=== PATIENT | male | born 1960 | race Caucasian/White ===

== ENCOUNTER 2017-01-20 16:43 | Observation (INO) | payer BC, OTHER ==
[2017-01-20] MEDS ORDERED: Sodium Chloride 0.9% 10 ML Syringe FLUSH PRN (16:57)
[2017-01-20] MEDS ORDERED: Aspirin 81 MG Tab.Chew PO ONE (16:59)
[2017-01-20] MEDS ORDERED: Nitroglycerin 0.4 MG Tab.SL SL ONE (16:59)
[2017-01-20 17:47] LABS: CHLORIDE,CL 104 mmol/L (98-107); SODIUM,NA 140 mmol/L (136-145)
[2017-01-20] MEDS ORDERED: Nitroglycerin 0.4 MG Tab.SL SL PRN (18:38)
[2017-01-20] MEDS: Nicotine 21 MG/24 Hr Patch TRDERM SCH (19:10)
[2017-01-20] MEDS ORDERED: Enoxaparin 40 MG/0.4 ML Syringe SUBCUT SCH (20:00)
[2017-01-20] MEDS ORDERED: Nitroglycerin 0.4 MG Tab.SL ONE (22:26)
[2017-01-20] MEDS ORDERED: LORazepam 1 MG Tab PO ONE (22:51)
[2017-01-21 06:22] VITALS: BP 121/80
[2017-01-21] MEDS: Nicotine 21 MG/24 Hr Patch TRDERM SCH (07:42)
--- NOTE | 2017-01-21 08:27 | ER ---
Date of Service: 01/20/2017 SUBJECTIVE: Philip presents to the emergency room with complaints of substernal chest pain. The patient states that he has been experiencing this discomfort intermittently since early this morning. The patient states that he has experienced intermittent episodes of chest tightness and discomfort for several years. He did have a negative stress test approximately 5 to 7 years ago. He is a heavy smoker, but states that he has no other risk factors for heart disease such as hypertension or dyslipidemia. The patient states that the discomfort is not made worse with movement or activity. He states that he has not been experiencing any fever or chills. He states that he has been under a significant amount of stress recently. PAST MEDICAL HISTORY: 1. Tobacco abuse disorder. 2. History of hypertension and episodes of diaphoresis, negative stress test approximately 5 to 7 years ago. MEDICATIONS: None. ALLERGIES: NKDA. REVIEW OF SYSTEMS: General: No fever or chills. HEENT: No sore throat, rhinorrhea, or congestion. Respiratory: No shortness breath. Cardiac: Please see history of present illness. No jaw, arm, neck, or back pain. GI: No nausea, vomiting, or diarrhea. No melena, hematochezia, or hematemesis. : Denies any dysuria. Musculoskeletal: No myalgias or arthralgias. Neurologic: No fainting, blackouts, or lightheadedness. PHYSICAL EXAMINATION: General: This is a 56-year-old male patient, in no acute distress. Vital signs: Initially, blood pressure is 141/96, pulse rate is 78, temperature is 36.4, respiratory rate is 14, and O2 saturations 97% on room air. Skin: Warm, pink, and dry. HEENT: Head is normocephalic, atraumatic. Mouth, oral mucosa is moist. Lungs: Clear to auscultation. Heart: Regular rate and rhythm. Normal S1, S2. No S3, S4, murmurs, clicks, or rubs. Abdomen: Soft, nontender. There is no hepatosplenomegaly noted. There are no masses noted. Extremities: Without edema. Neurologic: The patient is alert and oriented. Answers all questions appropriately. His speech is fluent. His gait is within normal limits. DIAGNOSTIC DATA: A 12-lead EKG was obtained showing a Q-wave in the inferior leads. No acute ST or T-wave abnormalities noted. Portable chest x-ray was obtained. No evidence of any acute infiltrate failure pattern or other pathology noted. LABORATORY DATA: WBC is 10.5, hemoglobin is 15.5, and platelets are 238. Coag; PT is 10.1 and INR is 0.9. D-dimer is less than 0.9. Chemistry; sodium is 140, potassium is 4.4, chloride is 104, bicarb is 29, BUN is 19, creatinine is 1.4, GFR is 52, glucose is 93, calcium is 8.8, and corrected calcium is 9.04. Total bilirubin is 0.7, AST is 14, ALT is 27, and alkaline phosphatase is 66. CK is 125 and CK-MB is 1.2. Troponin is 0.00. C-reactive protein is less than 0.2. Albumin is 3.7. EMERGENCY ROOM COURSE: IV access was established. He was given 324 mg of aspirin p.o. He was given 1 nitroglycerin, which did little to improve his discomfort. At time of admission, he was still experiencing discomfort approximately 1 or 2 on 1 to 10 scale. He remained stable my care in the emergency room. ASSESSMENT: Unstable angina. PLAN: The patient will be admitted to our facility. We will recheck his troponin in 4 hours and in the morning. We will perform serial EKGs as well as needed. We will schedule him for stress test either tomorrow or in the near future. The patient is a code level 1. The patient will be admitted to observation under my service. MWK: 01/20/2017 20:25:51 MODL: 01/20/2017 23:46:26 /[id number]
--- NOTE | 2017-01-21 11:11 | DISCH ---
ADMITTING DIAGNOSIS: Chest pain of unknown etiology. DISCHARGE DIAGNOSIS: Chest pain of unknown etiology. HOSPITAL COURSE: The patient was admitted yesterday afternoon with chest pain that developed while working in the attic of a house. The patient states that he is very active in his job and states that he does not feel as though he was exerting himself. He states that he did not experience any diaphoresis or palpitations during this event. He characterized the discomfort as substernal in nature without radiation. He states that discomfort does occasionally extend across his chest, however. 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 He also does have a history of previous chest pain in the past, and he states that he did have a negative stress test approximately 5 to 7 years ago. His EKG yesterday did show Q-wave in the inferior leads. He did have several EKGs in the emergency room and this morning, and there was no acute ST or T-wave changes, and the only abnormality was the Q-wave in the inferior leads. Serial troponins were negative. PHYSICAL EXAMINATION: Vital Signs: Blood pressure is 121/80, pulse rate is 67, temperature is 37, respiratory rate is 20, O2 saturations 94% on room air. Skin: Warm, pink, and dry. HEENT: Head is normocephalic and atraumatic. Mouth, oral mucosa is moist. Lungs: Clear to auscultation. Heart: Regular rate and rhythm. Abdomen: Soft and nontender. There is no hepatosplenomegaly or masses noted. Extremities: Without edema. Neurologic: He is alert and oriented, answers all questions appropriately. His speech is fluent. His gait is within normal limits. He is walking in the halls and states he is not experiencing any increased discomfort. HOSPITAL COURSE: The patient's pain level peaked at approximately 1.5 to 2 last night. The patient was given a nitroglycerin with minimal improvement in his discomfort. He also was given 1 nitroglycerin yesterday in the emergency room when he was experiencing this discomfort, which also did not help with the discomfort. He was given an Ativan yesterday as well, as he had been increasing significant amount of stress, and he feels that this did not help with the discomfort either. DISPOSITION: The patient will be discharged. DISCHARGE PLAN: I spoke with Dr. Alston, the director teen post on-call at [facility] in [place]. He felt that the patient could be treated as an outpatient, as he is currently pain free. We are setting him up for a Cardiolite stress test later this afternoon. The patient will be kept n.p.o. and free of caffeine until that time. His appointment is for 2 o'clock this afternoon at the [facility]. I did discuss findings with the patient. He is to return to the emergency room if he develops any recurrence of his chest pain, shortness of breath, palpitations, or lightheadedness. MWK: 01/21/2017 09:35:25 MODL: 01/21/2017 10:34:44 /[id number]
--- NOTE | 2017-02-02 08:01 | ER ---
Date of Service: 01/20/2017 ADDENDUM: This emergency room note may be used as the patient's admission H and P. MWK: 02/01/2017 16:37:12 MODL: 02/01/2017 23:53:17 /[id number]
== END 2017-01-21 09:45 | disposition home or self-care (01) ==
LOC: VM.ED 16:43 → VM.MS 18:15
PROVIDERS: ADMIT Physician Assistant; ATTEND Physician Assistant
DX: I20.0 Unstable angina (principal); I10 Essential (primary) hypertension; R61 Generalized hyperhidrosis; Z72.0 Tobacco use
CPT/HCPCS: 36415; 71010; 80053; 82550; 82553; 84484; 85025; 85027; 85379; 85610; 86140; 93005; 99285; A9270; J1650; 96372; G0378

== ENCOUNTER 2020-03-18 05:45 | Emergency (ER) | payer OTHER ==
[2020-03-18] MEDS ORDERED: Aspirin 81 MG Tab.Chew PO ONE (06:04)
[2020-03-18] MEDS ORDERED: GI Cocktail Oral Solution 30 ML PO ONE (06:05)
[2020-03-18 06:35] LABS: CHLORIDE,CL 102 mmol/L (98-107); SODIUM,NA 137 mmol/L (136-145)
[2020-03-18 06:36] LABS: ANION GAP 12.7 mmol/L (10-20)
--- NOTE | 2020-03-18 07:21 | EDM.PDOC ---
ED HPI GENERAL MEDICAL PROBLEM - General Chief Complaint: Chest Pain Stated Complaint: Chest pain, ?Gerd, burning pain Time Seen by Provider: 03/18/20 06:15 Source of Information: Reports: Patient History Limitations: Reports: No Limitations - History of Present Illness INITIAL COMMENTS - FREE TEXT/NARRATIVE: 59-year-old white male that presents to the ER this morning with midsternal chest pain that started at 6 PM last night patient states he had a sharp shooting pain in the epigastric area going down into the stomach that was about a 5 or 6 out of 10 burning that lasted for several hours then quit he was able to get up and go mow the yard and ate supper afterwards with a big steak states about 30 minutes later it returned and lasted till about 9 PM when he ate some Yakut yogurt and it flared back up lasted for another hour or so. Then quit then it returned this morning about 5 when he came to the ER. Patient states he has had the signs and symptoms before and is usually related to his acid reflux. Although it is been better over the last several months after quitting coffee he has stopped taking his Pepcid. He states yesterday morning he did have a big chocolate donut and a cup of coffee which he probably should not have . He states he had a nuclear stress test 3 years ago which was normal although they states he might of had an old HI. They found no abnormalities with the stress test though he has not seen a museum host/hostess since. He does see his primary care provider yearly for an annual physical. He has never been told that he has high blood pressure but he does not really check it at home. He has no family history of any coronary artery disease. As for his self he does have a history of smoking which he quit 3 years ago but no other risk factors. He has no other signs or symptoms or no signs or symptoms of end organ damage Onset: Gradual Duration: Hour(s): Location: Reports: Chest Quality: Reports: Burning, Stabbing, Other (He states that after the pain when he went to lay down that he felt a burning sensation, up into his throat and noticed that he had acid residue in his mouth.) Improves with: Reports: Medication, Other (Patient was given a GI cocktail here which states totally alleviated his pain) Associated Symptoms: Reports: No Other Symptoms Treatments EVENTS AND PROMOTIONS ASSISTANT: Reports: Aspirin, Other (see below) Other Treatments EVENTS AND PROMOTIONS ASSISTANT: Pepcid Epigastric to mid sternal chest Pain Score (Numeric/FACES): 1 - Related Data Allergies Allergy/AdvReac Type Severity Reaction Status Date / Time No Known Allergies Allergy Verified 03/18/20 05:59 Home Meds: Home Meds Aspirin 81 mg PO DAILY 03/18/20 [History] Famotidine [Pepcid AC] 20 mg PO DAILY 03/18/20 [History] Past Medical History Other HEENT History: wears reading glasses Cardiovascular History: Reports: Other (See Below) Other Cardiovascular History: Cardiac stress test, negative 3 years ago Gastrointestinal History: Reports: GERD Other Gastrointestinal History: acid reflux Musculoskeletal History: Reports: Other (See Below) Other Musculoskeletal History: fx wrist, fx R ankle, meniscus tear to L knee - Past Surgical History Cardiovascular Surgical History: Reports: None Social & Family History - Tobacco Use Smoking Status *Q: Former Smoker Used Tobacco, but Quit: Yes Month/Year Tobacco Last Used: 0 - Caffeine Use Caffeine Use: Reports: Coffee ED ROS GENERAL - Review of Systems Review Of Systems: See Below Constitutional: Reports: No Symptoms. Denies: Fever, Chills, Malaise, Weakness, Fatigue, Night Sweats, Diaphoresis, Decreased Appetite HEENT: Reports: No Symptoms Respiratory: Reports: No Symptoms. Denies: Shortness of Breath, Wheezing, Pleuritic Chest Pain, Cough Cardiovascular: Reports: Chest Pain, Other (No orthopnea). Denies: Blood Pressure Problem, Claudication, Dyspnea on Exertion, Edema, Lightheadedness, Orthopnea, Palpitations, PND, Syncope Endocrine: Reports: No Symptoms GI/Abdominal: Denies: Abdominal Pain, Anorexia, Black Stool, Bloody Stool, Constipation, Diarrhea, Difficulty Swallowing, Flatus, Nausea, Vomiting : Reports: No Symptoms Musculoskeletal: Reports: No Symptoms Skin: Reports: No Symptoms Neurological: Reports: No Symptoms Psychiatric: Reports: No Symptoms Hematologic/Lymphatic: Reports: No Symptoms Immunologic: Reports: No Symptoms ED EXAM, GENERAL - Physical Exam Exam: See Below Exam Limited By: No Limitations General Appearance: Alert, WD/WN, No Apparent Distress Eye Exam: Bilateral Eye: PERRL Nose: Normal Inspection, Normal Mucosa, No Blood Throat/Mouth: Normal Inspection, Normal Lips, Normal Teeth, Normal Gums, Normal Oropharynx, Normal Voice, No Airway Compromise Head: Atraumatic, Normocephalic Neck: Normal Inspection, Supple, Non-Tender, Full Range of Motion Respiratory/Chest: No Respiratory Distress, Lungs Clear, Normal Breath Sounds, No Accessory Muscle Use, Chest Non-Tender Cardiovascular: Normal Peripheral Pulses, Regular Rate, Rhythm, No Edema, No Gallop, No JVD, No Murmur, No Rub, Other (Normal carotids bilateral) GI/Abdominal: Normal Bowel Sounds, Soft, Non-Tender, No Organomegaly, No Distention, No Abnormal Bruit Back Exam: Normal Inspection, Full Range of Motion Extremities: Normal Inspection, Normal Range of Motion, Non-Tender, No Pedal Edema, Normal Capillary Refill Neurological: Alert, Oriented, CN II-XII Intact, Normal Cognition, Normal Gait, No Motor/Sensory Deficits Psychiatric: Normal Affect, Normal Mood Skin Exam: Warm, Dry, Intact, Normal Color, No Rash Course - Vital Signs Text/Narrative:: CBC BMP troponin all negative EKG is normal sinus rhythm no acute findings Patient is noted to be hypertensive initially he was 172/107 when rechecked it was 154/100 rest of vital signs are all within normal limits patient states he feels 100% better ready to go to work Spoke with Dr. Cyndi Sheridan she will have the patient seen this morning in the clinic at 830 Last Recorded V/S: Last Vital Signs Temp 36.8 C 03/18/20 05:45 Pulse 54 L 03/18/20 05:45 Resp 16 03/18/20 05:45 BP 172/107 H 03/18/20 05:45 Pulse Ox 96 03/18/20 05:45 - Orders/Labs/Meds Orders: Active Orders 24 hr Category Date Time Status EKG 12 Lead [EKG Documentation Completion] [RC] STAT Care 03/18/20 05:45 Active Labs: Laboratory Tests 03/18/20 03/18/20 03/18/20 Range/Units 06:13 06:13 06:14 WBC 7.2 (4.0-10.0) x10^3/uL RBC 5.33 (4.5-6.0) x10^6/uL Hgb 15.7 (14.0-18.0) g/dL Hct 45.3 (40.0-52.0) % MCV 85.0 D (78.0-93.0) fL MCH 29.5 (26.0-32.0) pg MCHC 34.7 (32.0-36.0) g/dL RDW Coeff of Ameena 12.8 (10.0-15.0) % Plt Count 197 (130-400) x10^3/uL Neut % (Auto) 58.0 (50.0-80.0) % Lymph % (Auto) 26.1 (25.0-50.0) % [place] % (Auto) 11.1 H (2.0-11.0) % Eos % (Auto) 4.4 H (0.0-4.0) % Baso % (Auto) 0.4 (0.2-1.2) % Sodium 137 (136-145) mmol/L Potassium 4.7 (3.5-5.1) mmol/L Chloride 102 (98-107) mmol/L Carbon Dioxide 27 (21-32) mmol/L Anion Gap 12.7 (10-20) mmol/L BUN 28 H (7-18) mg/dL Creatinine 1.7 H (0.70-1.30) mg/dL Est Cr Clr Drug Dosing TNP Estimated GFR (MDRD) 41 Glucose 109 H (74-106) mg/dL Calcium 8.4 L (8.5-10.1) mg/dL POC Troponin I 0.00 (0.00-0.08) ng/mL Meds: Medications Discontinued Medications Generic Name Dose Route Start Last Admin Trade Name Freq PRN Reason Stop Dose Admin Al Hydroxide/Mg Hydroxide 30 ml 03/18/20 06:05 03/18/20 06:12 Gi Cocktail PO 03/18/20 06:06 30 ml ONETIME ONE Administration Aspirin 324 mg 03/18/20 06:04 03/18/20 06:10 Aspirin PO 03/18/20 06:05 324 mg ONETIME ONE Administration Departure - Departure Time of Disposition: 07:40 Disposition: Home, Self-Care 01 Condition: Good Clinical Impression: Chest pain, non-cardiac, Hypertension Instructions: Nonspecific Chest Pain, Adult, Hypertension, Adult, [id number] Referrals: PCP,Unobtain [Primary Care Provider] - Forms: ED Department Discharge Additional Instructions: Follow-up in clinic this morning when discharge from the hospital emergency room at [address] Cyndi Sheridan Take all your medicines as directed Return to the emergency room if anything changes or gets worse Sepsis Event Note (ED) - Evaluation Sepsis Screening Result: No Definite Risk - Focused Exam Vital Signs: Vital Signs Temp Pulse Resp BP Pulse Ox 03/18/20 05:45 36.8 C 54 L 16 172/107 H 96 - Problem List & Annotations (1) Chest pain, non-cardiac SNOMED Code(s): 235228513 Code(s): R07.89 - OTHER CHEST PAIN Status: Acute Current Visit: Yes (2) Hypertension SNOMED Code(s): 71943175 Code(s): I10 - ESSENTIAL (PRIMARY) HYPERTENSION Status: Acute Current Visit: Yes - My Orders Last 24 Hours: My Active Orders 03/18/20 05:45 EKG 12 Lead [EKG Documentation Completion] [RC] STAT - Assessment/Plan Last 24 Hours: My Active Orders 03/18/20 05:45 EKG 12 Lead [EKG Documentation Completion] [RC] STAT
[2020-03-18 07:43] VITALS: BP 149/102; PULSE 58
== END 2020-03-18 07:40 | disposition home or self-care (01) ==
LOC: VM.ED 05:45
DX: R07.89 Other chest pain (principal); I10 Essential (primary) hypertension; K21.9 Gastro-esophageal reflux disease without esophagitis; Z87.891 Personal history of nicotine dependence; Z79.82 Long term (current) use of aspirin; Z79.899 Other long term (current) drug therapy
CPT/HCPCS: 36415; 80048; 82803; 84484; 85025; 93005; 99285-25; A9270-GY

== ENCOUNTER 2022-04-08 08:16 | Day surgery (SDC) | payer OTHER ==
[2022-04-08] MEDS: Lactated Ringers 1,000 ML IV SCH (08:39)
[2022-04-08] MEDS ORDERED: Propofol 200 MG/20 ML SDV ONE (10:00)
[2022-04-08] MEDS ORDERED: Midazolam 1 MG/ML 2 ML SDV ONE (10:00)
[2022-04-08] MEDS ORDERED: fentaNYL 100 MCG/2 ML SDV ONE ×2 (10:00→10:49)
[2022-04-08 12:40] VITALS: BP 134/89; PULSE 62
== END 2022-04-08 12:30 | disposition home or self-care (01) ==
LOC: VM.SDS 08:16
PROVIDERS: ATTEND Family Medicine
DX: Z12.11 Encounter for screening for malignant neoplasm of colon (principal); D12.2 Benign neoplasm of ascending colon; G47.33 Obstructive sleep apnea (adult) (pediatric); G43.909 Migraine, unspecified, not intractable, without status migrainosus; K21.9 Gastro-esophageal reflux disease without esophagitis; F33.0 Major depressive disorder, recurrent, mild; N18.30 Chronic kidney disease, stage 3 unspecified; Z79.899 Other long term (current) drug therapy; Z88.8 Allergy status to other drugs, medicaments and biological substances; Z87.891 Personal history of nicotine dependence
CPT/HCPCS: 00811; J2250; J2704; J3010; J7120

== ENCOUNTER 2023-03-26 07:29 | Emergency (ER) | payer OTHER ==
[2023-03-26 07:40] VITALS: BP 124/82; PULSE 62
[2023-03-26] MEDS ORDERED: Amoxicillin/Clavulanate K 875-125 MG Tab PO ONE (07:47)
== END 2023-03-26 08:13 | disposition home or self-care (01) ==
LOC: VM.ED 07:29
DX: K08.89 Other specified disorders of teeth and supporting structures (principal); K21.9 Gastro-esophageal reflux disease without esophagitis; Z88.8 Allergy status to other drugs, medicaments and biological substances; Z79.899 Other long term (current) drug therapy; Z87.891 Personal history of nicotine dependence
CPT/HCPCS: 99282; 99283; A9270-GY